=== PATIENT | male | born 1945 | race Caucasian/White ===

== ENCOUNTER 2018-02-05 11:22 | Outpatient (CLI) | payer MEDICARE, OTHER ==
[2018-02-05 12:09] LABS: eGFR (African) > 60; eGFR (Non-African) > 60
== END 2018-02-05 11:23 ==
LOC: LAB 11:22
PROVIDERS: ATTEND Family Medicine
DX: E11.9 Type 2 diabetes mellitus without complications (principal); I10 Essential (primary) hypertension
CPT/HCPCS: 36415; 80053; 80061; 82043; 83036

== ENCOUNTER 2018-08-13 02:02 | Emergency (ER) | payer MEDICARE, OTHER ==
--- NOTE | 2018-08-13 02:43 | ED Physician Documentation ---
General Adult - HISTORIAN Historian: patient, paramedics - HPI Stated Complaint: hypoglycemia Chief Complaint: General Adult Additional Information: intro self as SKIN CARE SPECIALIST. pt presents to the ED via EMS c/o hypoglycemia at 48. pt slid out of chair onto floor. pt was given D10 by EMS. pt denies pain or any symptoms at this time. pt is a/o x 3 skin pwd eupneic VSS. pt reports the last several mornings he has had low blood sugar in the 50s. Blood glucose upon arrival at 0209am: 112 0240: 100 pt given peanut butter sandwich and orange juice. pt denies current symptoms: chest pain, dyspnea, syncope/near syncope, headache, dizziness, visual disturbances, n/v/d, fever/chills, rash, sick contacts, dysuria, trauma. melena or hematochezia, bleeding or easy bruising, change in bowel or bladder function, no recent weight loss/gain, anxiety or depression. ROS Negative unless otherwise specified. pt refused to be transferred to [facility]. No inpatient beds available here. Will monitor in the ED. - ROS CONST: no problems. denies: fever, sweating, recent illness, weakness, chills EYES/ENT: none. denies: problems with vision, sore throat, nasal drainage, nasal congestion CVS/RESP: denies: chest pain, shortness of breath, cough GI/: denies: abdominal pain, problems urinating, vomiting, nausea, diarrhea, black stools MS/SKIN/LYMPH: none. denies: calf pain, neck pain, joint pain, leg swelling, rash, swollen glands, leg pain, back pain, ankle swelling NEURO/PSYCH: fainting, difficulty with speech. denies: dizziness, tingling, numbness, difficulty walking, anxiety, depression, other - PAST HX Past History: other (HTN, DM2) Surgeries/Procedures: other (B Rotator cuff. L knee) Allergies/Adverse Reactions: Allergies Allergy/AdvReac Type Severity Reaction Status Date / Time No Known Drug Allergies Allergy Unverified 10/06/12 09:20 - SOCIAL HX Smoking History: non-smoker Alcohol Use: none Drug Use: none - FAMILY HX Family History: No - VITAL SIGNS Vital Signs: Vital Signs Temp Pulse Resp BP Pulse Ox 66 98 08/13/18 02:10 08/13/18 02:10 - REVIEWED ASSESSMENTS Nursing Assessment Reviewed: Yes Vitals Reviewed: Yes Progress - Progress Progress: pt remained 90-130s. reports readiness for dc. advised to eat again upon discharge and return if worse. understanding verbalized. ED Results Lab/Radiology - Radiology Radiology Impressions: Report Submission Date: Aug 13, 2018 3:34:21 AM BONDERIZER OPERATOR Patient Study Name: MIRNA KARIMI Date: Aug 13, 2018 3:06:03 AM BONDERIZER OPERATOR Modality Type: DX Gender: M Description: CHEST : 47 Institution: [facility] Physician: JUAN MERCADO PA and lateral chest Clinical history: Syncope. Findings: Examination of the chest in PA and lateral views with comparison to examination from earlier in the day demonstrates the lungs to be clear. Cardiovascular and mediastinal silhouettes are stable. Degenerative changes are seen in the shoulders and thoracic vertebrae. Impression: 1. No change. Electronically signed on Aug 13, 2018 3:34:21 AM BONDERIZER OPERATOR by: Cyrus Crowell Report Submission Date: Aug 13, 2018 2:56:27 AM BONDERIZER OPERATOR Patient Study Name: MIRNA KARIMI Date: Aug 13, 2018 2:32:03 AM BONDERIZER OPERATOR Modality Type: DX Gender: M Description: CHEST : 47 Institution: [facility] Physician: JUAN MERCADO Portable chest Clinical history: Syncope. Findings: Examination of the chest single portable upright view demonstrates lungs to be hypoventilated but clear. The cardiac silhouette is prominent and the aorta is atherosclerotic. Monitor leads superimpose the chest. Degenerative changes are seen in the shoulders and thoracic vertebrae. Impression: 1. Aortic atherosclerosis. 2. Hypoventilation. 3. No active disease. Electronically signed on Aug 13, 2018 2:56:27 AM BONDERIZER OPERATOR by: Cyrus Crowell - Orders Orders: ED Orders Category Date Time Status Continuous EKG monitoring Q30M Care 08/13/18 02:13 Active Continuous Pulse Oximetry Q30M Care 08/13/18 02:[address] IV Lock 1T Care 08/13/18 02:13 Active CHEST 1VIEW [RAD] Stat Exams 08/13/18 Ordered CBC/PLATELET/DIFF Routine Lab 08/13/18 02:24 Received CMP Routine Lab 08/13/18 02:24 Received TROPONIN I (cTnI) Stat Lab 08/13/18 02:24 Received Chem Sticks Med 08/13/18 02:14 Ordered 1 each MC CHEMQ PRN Oxygen Daily Oxygen 08/13/18 02:15 Ordered EKG WITH COMPARISON Stat Ther 08/13/18 Ordered General Adult Physical Exam - PHYSICAL EXAM GENERAL APPEARANCE: no distress () EENT: eye inspection normal, ENT inspection normal, pharynx normal, no signs of dehydration, ARASH, no nystagmus, TM's nml NECK: normal inspection, thyroid normal RESPIRATORY: no resp distress, chest non-tender, breath sounds normal CVS: reg rate & rhythm, heart sounds normal, equal pulses, no murmur, no gallop, PMI nml, no JVD, no friction rub, 24 ABDOMEN: soft, no organomegaly, normal bowel sounds, no abdominal bruit, no distension BACK: normal inspection, no CVA tenderness SKIN: normal color, warm/dry, NR, INT, PAL, DR EXTREMITIES: non-tender, normal range of motion, no evidence of injury, no edema, J, SKIN CARE SPECIALIST NEURO: oriented X3, CN's nml as tested, motor nml, sensation nml, mood/affect nml Discharge Clincal Impression: Hypoglycemia, Hyponatremia, Hypokalemia Referrals: Brayan Lopez MD [Primary Care Provider] - 2 Days Additional Instructions: Stop taking glipizide. continue other current medication. follow up with dr lopez in 1-2 days. monitor your blood glucose upon waking, before meals, and before bed. log it on a paper. bring to next appt with dr lopez. return if worse: seek medical care immediately if weak or difficult to wake, difficulty breathing, feeling faint or fainting, increased rash, chest pain, shortness of breath, or fever not controlled by tylenol/motrin or any concern. PLEASE UNDERSTAND THAT THIS IS AN EMERGENCY EVALUATION FOR YOUR COMPLAINT AND BY NATURE IS LIMITED AND NOT A SUBSTITUTE FOR ONGOING MEDICAL CARE. EVEN THOUGH TEST RESULTS AND TREATMENT PLAN WERE EXPLAINED THERE MAY BE A NEED FOR ADDITIONAL TESTING TO FULLY DETERMINE THE EXTENT OF YOUR ILLNESS/INJURY/OR CONCERN SO YOU SHOULD CONTACT AND OR ESTABLISH WITH A PRIMARY CARE PROVIDER (OR REFERRAL DOCTOR IF APPLICABLE) FOR AN APPOINTMENT SOON POSSIBLE Disposition: 01 HOME, SELF-CARE Decision to Admit: NO Date of Decison to Admit: 08/13/18 Decision Time: 06:26
[2018-08-13] MEDS ORDERED: POTASSIUM CHLORIDE 20 MEQ TABLET.ER PO ONE (02:52)
--- NOTE | 2018-08-13 06:13 | Diagnostic Imaging Report ---
JUAN MERCADO [facility] [address] Pending Sale To [facility] [address] [address] Report Submission Date: Aug 13, 2018 2:56:27 AM SCREEN MAKER Patient Study Name: MIRNA KARIMI Date: Aug 13, 2018 2:32:03 AM SCREEN MAKER Modality Type: DX Gender: M Description: CHEST : 47 Institution: [facility] Physician: JUAN MERCADO Portable chest Clinical history: Syncope. Findings: Examination of the chest single portable upright view demonstrates lungs to be hypoventilated but clear. The cardiac silhouette is prominent and the aorta is atherosclerotic. Monitor leads superimpose the chest. Degenerative changes are seen in the shoulders and thoracic vertebrae. Impression: 1. Aortic atherosclerosis. 2. Hypoventilation. 3. No active disease. Electronically signed on Aug 13, 2018 2:56:27 AM SCREEN MAKER by: Cyrus CASTRO
--- NOTE | 2018-08-13 06:14 | Diagnostic Imaging Report ---
JUAN MERCADO [facility] [address] [facility].[address] [address] Report Submission Date: Aug 13, 2018 3:34:21 AM RN VASCULAR Patient Study Name: MIRNA KARIMI Date: Aug 13, 2018 3:06:03 AM RN VASCULAR Modality Type: DX Gender: M Description: CHEST : 47 Institution: [facility] Physician: JUAN MERCADO PA and lateral chest Clinical history: Syncope. Findings: Examination of the chest in PA and lateral views with comparison to examination from earlier in the day demonstrates the lungs to be clear. Cardiovascular and mediastinal silhouettes are stable. Degenerative changes are seen in the shoulders and thoracic vertebrae. Impression: 1. No change. Electronically signed on Aug 13, 2018 3:34:21 AM RN VASCULAR by: Cyrus CASTRO
[2018-08-13 06:43] VITALS: BP 113/76
[2018-08-13 07:05] LABS: BASOPHILS % 0.3 (0.0-1.5); EOSINOPHILS % 1.2 % (0.0-6.8); MONOCYTES % 8.4 % (0.0-11.0); NEUTROPHILS # 6.7 # k/uL (1.4-7.7); eGFR (Non-African) > 60
== END 2018-08-13 06:42 | disposition home or self-care (01) ==
LOC: ED 02:02
DX: E11.649 Type 2 diabetes mellitus with hypoglycemia without coma (principal); E87.1 Hypo-osmolality and hyponatremia; E87.6 Hypokalemia
CPT/HCPCS: 36415; 71045; 71046; 80053; 84484; 85025; 93005; 99283; 99285; A9270